=== PATIENT | male | born 1975 | race Two or more races ===

== ENCOUNTER → 2024-08-19 | Outpatient (CLI) | payer OTHER, SELFPAY ==
[2024-08-19 08:53] LABS: Free T3 3.5 pg/mL (2.3-4.2)
[2024-08-19 09:03] LABS: T4 (Thyroxine) 12.6 mcg/dL (4.5-10.9)
[2024-08-27 06:51] LABS: Homocysteine* 10.9 umol/L (<11.4); T3, Reverse, LC/MS/MS* 30 ng/dL (8-25); hs-CRP* 1.6 mg/L
== END | disposition home or self-care (01) ==
PROVIDERS: PCP Family Medicine; Referring Provider Family Medicine; Visit Provider Family Medicine
DX: E03.9 Hypothyroidism, unspecified (principal); I15.8 Other secondary hypertension
CPT/HCPCS: 36415; 83090; 84436; 84481; 84482; 86141